=== PATIENT | female | born 1970 | race Caucasian/White ===

== ENCOUNTER 2018-11-10 07:06 | Emergency (ER) | payer MEDICAID ==
[~2018-11-10] VITALS: Ht 160 cm; Wt 60.0 kg
[2018-11-10] MEDS ORDERED: KETOROLAC 60MG/2ML VIAL IM ONE (08:30)
[2018-11-10 09:15] VITALS: BP 101/57
== END 2018-11-10 09:15 | disposition home or self-care (01) ==
LOC: ER 07:15
DX: M54.30 Sciatica, unspecified side (principal)
CPT/HCPCS: 81025; 96372; 99283; J1885